=== PATIENT | female | born 1985 | race Two or more races ===

== ENCOUNTER → 2017-09-17 | Outpatient (CLI) | payer OTHER | LOC: M LRY 09:50 | DX: S99.922A Unspecified injury of left foot, initial encounter (principal); X58.XXXA Exposure to other specified factors, initial encounter; Y92.89 Other specified places as the place of occurrence of the external cause | CPT/HCPCS: 73630; G0463 ==

== ENCOUNTER → 2018-02-21 | Outpatient (REF) | payer OTHER | LOC: M SFHCLERA 19:48 | DX: N89.8 Other specified noninflammatory disorders of vagina (principal) ==

== ENCOUNTER 2018-12-11 10:55 | Outpatient (CLI) | payer OTHER ==
[~2018-12-11] VITALS: Ht 175.3 cm; Wt 91.9 kg
[2018-12-11 11:23] VITALS: BP 105/65
[2018-12-11] MEDS ORDERED: ASPI81TA85 PO (11:29)
[2018-12-11] MEDS ORDERED: PREN1TAB9 PO (11:29)
--- NOTE | 2018-12-11 12:58 | REP ---
Right upper quadrant sonography: History: Upper abdominal pain. Comparison study: No comparison study. Findings: Scanning through the right upper quadrant of the abdomen demonstrates a normal sized, thin-walled gallbladder without evidence of stone or sludge. There is a 6 mm polyp near the gallbladder fundus however . Common bile duct is normal measuring 0.3 cm in greatest diameter. No focal liver lesion is seen. Liver size is normal. No pancreatic abnormality is observed. No right renal abnormality is seen. There is no evidence of ascites. The right kidney measures 12.7 x 6.5 x 4.8 cm. Impression: 6 mm polyp in the gallbladder fundus. Otherwise negative right upper quadrant sonography. Electronically Signed by Faheem Lal MD 12/11/2018 04:56 P
[2018-12-11 13:31] VITALS: BP 108/65
--- NOTE | 2018-12-15 12:41 | HPE ---
DATE OF ADMISSION: 12/11/2018 This lady came to triage. She is a 33-year-old 6, para 2, abortio 3, last menstrual period (LMP) 05/28/2018, estimated date of confinement (EDC) 03/23/2019 at 25 and 3 weeks of gestation with a history of epigastric pain over 5 days. When she eats it is worse. When she drinks she seems to be feel better. When she is sitting up she is better, when she lies down it seems to be worse. She is not taking any ancillary medications only her vitamins. She has no past history of gastroesophageal reflux disease or ulcers. PAST HISTORY: In 2007 spontaneous at 7 weeks. 2012 at 38 weeks, spontaneous vaginal delivery, 7 pounds 12 ounces. 2014 40 weeks and 2 days, spontaneous vaginal delivery, 7 pounds 15 ounces. 2017 spontaneous . 2018 spontaneous . Presently, her blood pressure is 108/65, respirations are 16, pulse is 89 and temperature 98.3. Her urine is 1.020, pH 6 and +1 ketones. The rest the examination is unremarkable. She has some tenderness in the upper epigastrium. No rebound or guarding. Bowel sounds are normal. She has no eructations. Symphysis fundus height is appropriate. Category 1 strip and four quadrant bowel sounds are normal. Her labs are A positive. HIV negative. Hep negative. RPR negative. Rubella immune. Varicella immune. Pap normal. Urine negative. Gonorrhea and chlamydia are negative. CF is negative. Our plan of management is to ultrasound her gallbladder, do H. pylori antigen antibodies, and treat on the basis of that. The patient is PCS-ing in the next 4 days and because she was unable to provide a stool sample, she will have to do it at her next duty station. Ultrasound of her gallbladder suggests that she has a polyp in her gallbladder, which may or may not be giving her the epigastric pain. The rest of the evaluation and investigation was normal. In summary, we have 25 and 5 weeks gestation with some epigastric pain, possible gastroesophageal reflux disease, H. pylori or effects of the polyp in the gallbladder. The patient was discharged undelivered to follow-up with her next provider.
== END 2018-12-11 15:29 | disposition home or self-care (01) ==
LOC: M LDO 10:55
PROVIDERS: ATTEND Obstetrics & Gynecology
DX: O26.892 Other specified pregnancy related conditions, second trimester (principal); R10.13 Epigastric pain; O99.612 Diseases of the digestive system complicating pregnancy, second trimester; K82.8 Other specified diseases of gallbladder; Z3A.25 25 weeks gestation of pregnancy
CPT/HCPCS: 59025; 76705; G0378; G0463